=== PATIENT | female | born 1985 | race Two or more races ===

== ENCOUNTER 2025-08-16 17:13 | Emergency (ER) | payer MEDICAID, SELFPAY ==
[2025-08-16 18:19] VITALS: BP 147/92; PULSE 87; RESP 18; TEMP 36.8; O2SAT 97
--- NOTE | 2025-08-16 18:32 | EKG_ITS ---
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
--- NOTE | 2025-08-16 18:32 | XR_ITS ---
EXAMINATION: PA chest single view TECHNIQUE: Upright PA chest single view Date and time: August 16, 2025, 1834 hours INDICATIONS: Chest pain today. FINDINGS: Normal heart size No lobar pneumonia or pulmonary edema. Osseous structures intact IMPRESSION: No lobar pneumonia or pulmonary edema
--- NOTE | 2025-08-16 18:35 | EDNOTE_ITS ---
ED General RME/HPI General Chief complaint: Shortness of Breath/Dyspnea Stated complaint: SOB, left arm numb today Time Seen by Provider: 08/16/25 18:09 Arrival date/time: 08/16/25 17:13 Related Data Home Medications ?Medication ?Instructions ?Recorded ?Confirmed Nitrofurantoin Macrocrystals SR * 100 mg PO BID UTI #0 caps 01/05/14 (MACROBID *) Vitamin * 1 tab PO QDAY suppl ement 01/05/14 #0 tabs Previous Rx's ?Medication ?Instructions ?Recorded docusate sodium 100 mg capsule 100 mg PO BID #40 caps 02/25/22 (Colace) hydrocodone 5 mg-acetaminophen 325 1 tab PO Q6H PRN pa in (scale score 02/25/22 mg tablet 7-10) #20 tabs ibuprofen 600 mg tablet 600 mg PO Q8H PRN pain (scal e 02/25/22 score 4-6) #15 tabs ibuprofen 800 mg tablet 800 mg PO Q8H PRN pain 5 day s #15 08/16/25 tabs Allergies Allergy/AdvReac Type Severity Reaction Status Date / Time No Known Allergies Allergy Unknown Verified 08/16/25 17:19 ED Exam Narrative Physical exam: Physical Exam: GENERAL: Awake, answering questions appropriately, appears stated age HEENT: NC/AT. Moist mucosa. PERRLA/EOMI. CARDIO: Heart RRR, no obvious murmurs, no JVD. PULM: No coughing or visible SOB. Lungs CTA B/L. GI: Abdomen soft, NT/ND, +BS. SKIN/MSK/EXT: Tenderness on palpation of left axillary region and left scapular region. No wounds/discoloration/rashes/edema/amputations. +Pedal pulses present B/L. NEURO: Oriented x3, Moves extremities x4, no focal neurologic deficits noted Course Quality Measures none Orders Category Date Time Status Assistant At Surgery STAT Care 08/16/25 18:32 Active Continuous Pulse Oximetry ONCE Care 08/16/25 18:32 Active EKG (ED ONLY) *Do not use* NOW Care 08/16/25 18:32 Completed Insert IV STAT Care 08/16/25 18:32 Active EKG (ED Only) Stat Exams 08/16/25 18:32 Draft XR chest 1V portable Stat Exams 08/16/25 18:32 Completed CBC Stat Lab 08/16/25 18:51 Completed Comprehensive Metabolic Panel Stat Lab 08/16/25 18:51 Completed Magnesium Stat Lab 08/16/25 18:51 Completed Troponin I Stat Lab 08/16/25 18:51 Completed Aspirin Chew Med 08/16/25 18:32 Discontinued 324 mg PO X1 ONE Oxygen Delivery NOW RT 08/16/25 18:32 Active Vital Signs Vital signs: Vital Signs Temperature 98.3 F 08/16/25 18:19 Pulse Rate 87 08/16/25 18:19 Respiratory Rate 18 08/16/25 18:19 Blood Pressure 147/92 H 08/16/25 18:19 Pulse Oximetry (%) 97 08/16/25 18:19 Oxygen Delivery Method Room Air 08/16/25 18:19 Discharge Plan Plan Patient Disposition: HOME (Self Care) Discharge Disposition comment: Please take ibuprofen 800 mg every 8 hours as needed for left upper back pain Please follow-up with your primary care doctor within the next 5 days to monitor for pain relief If your pain resurfaces or gets worse, you develop shortness of breath and dizziness please come back to the emergency room immediately. Patient condition on transfer: Stable Prescriptions/Referrals Prescriptions/Med Rec: New ibuprofen 800 mg tablet 800 mg PO Q8H PRN (Reason: pain) 5 Days Qty: 15 0RF No Action Nitrofurantoin Macrocrystals SR * (MACROBID *) 100 MG capsule 100 mg PO BID Qty: 0 Vitamin * 1 EACH tablet 1 tab PO QDAY Qty: 0 hydrocodone-acetaminophen 5-325 mg tablet 1 tab PO Q6H MDD 4 PRN (Reason: pain (scale score 7-10)) Qty: 20 0RF docusate sodium [Colace] 100 mg capsule 100 mg PO BID Qty: 40 0RF ibuprofen 600 mg tablet 600 mg PO Q8H PRN (Reason: pain (scale score 4-6)) Qty: 15 0RF Referrals: Rui Russ MD [Primary Care Provider, Family Practice] - In 1 week Problem List Clinical Impression: Upper back pain on left side Patient/Caregiver Discharge Instructions Education Materials: Relieving Tension in Your Back Print Language: Swedish Stand Alone Forms: [employer]en Award Info., Patient Portal Info Letter MDM Narrative MDM hospital course (for use when minimal MDM required): HPI: 40-year-old female with past medical history of possible hypertension not on any antihypertensives, mild hyperlipidemia not on any statin, previously hypothyroid but not on any medication presenting to the ED on 08/16 with axillary chest pain and upper lower back pain. Patient states that she has been having this pain for about 1 week and she is concerned because last year when she went to her PCP with similar presentation they gave her some medication for her tongue and told her that she might be having a heart attack. Patient states that the pain feels like a stabbing sensation and is worse with palpation of the area. She denies any sick contacts, palpitations, shortness of breath but does state that she does get dizzy sometimes. She has not had any loss of consciousness. Patient does state that she has family history of heart disease with her older sister apparently had some type of heart at the age of 50 but otherwise she does not know her family history regarding stroke heart attacks. On examination please refer to the physical exam above, patient presented mildly hypertensive 147/92, heart rate of 87, respiratory of 18, afebrile satting 97 on room air. Laboratory findings largely unremarkable, CMP also largely unremarkable other than magnesium of 1.8, mild LFT elevation with AST 67, ALT 126 but total bilirubin 0.2 and alk phos of 109. Chest x-ray does not show any lobar pneumonia or pulmonary edema and EKG sinus rhythm without any concerning ST changes. Differentials at this time include: Musculoskeletal disorder, muscle sprain, costochondritis less likely to be acute coronary syndrome at this time #Atypical chest pain Patient's heart score 2?points Low Score (0-3 points) Risk of MACE of 0.9-1.7% Patient's pain is also reproducible with palpation meaning less likely cardiac etiology She does have some risk factors such as obesity, probably undiagnosed hypertension and hyperlipidemia and she does apparently smoke 1 or 2 cigarettes a day for the past 8 years and some family history Troponin and EKG unremarkable Plan: Will discharge with NSAID, ibuprofen 800 mg every 8 hours as needed for pain Close follow-up with PCP within the next 5 days for management of her hypertension hyperlipidemia. Patient seen and assessed with attending Dr. Nafisa Terrazas, DO PGY-2 Internal Medicine - GME Medication Administration(s) Medication Administration History Discontinued Medications Aspirin (Aspirin 81 Mg Chew) 324 mg PO X1 ONE Stop: 08/16/25 18:33 Last Admin: 08/16/25 19:19 Dose: Not Given Documented By: CHELA Non-Admin Reason: Cancelled by Provider
[2025-08-16 19:05] LABS: Basophils # (Auto) 0.1 Thou/mm3 (0.0-0.2); Basophils % (Auto) 1 % (0-2.5); Eosinophils # (Auto) 0.2 Thou/mm3 (0.0-0.5); Eosinophils % (Auto) 2 % (0-10); Hematocrit 38.1 % (36.0-46.0); Hemoglobin 12.9 g/dL (12.0-16.0); Immature Granulocytes Auto 0.01 Thou/mm3 (0.00-0.00); Lymphocytes # (Auto) 3.5 Thou/mm3 (1.0-4.8); Lymphocytes % (Auto) 39 % (10-50); Mean Corpuscular HGB Conc 33.9 g/dl (31.0-37.0); Mean Corpuscular Hemoglobin 31.8 pg (25.0-35.0); Mean Corpuscular Volume 94 fL (80-100); Monocytes # (Auto) 0.8 Thou/mm3 (0.0-0.8); Monocytes % (Auto) 9 % (0-12); Neutrophils # (Auto) 4.5 Thou/mm3 (1.8-7.7); Neutrophils % (Auto) 50 % (37-80); Nucleated Red Blood Cell # 0.00 Thou/mm3 (0.00-0.00); Nucleated Red Blood Cell % 0 /100 WBC (0); Platelet Count 381 Thou/mm3 (140-440); RDW Standard Deviation 42.6 fL (36.4-46.3); Red Blood Count 4.06 Miln/mm3 (4.00-5.20); White Blood Count 9.0 Thou/mm3 (3.6-11.0)
[2025-08-16 19:26] LABS: Alanine Aminotransferase 126 U/L (10-49); Albumin, Serum 4.5 gm/dL (3.5-5.0); Albumin/Globulin Ratio 1.3 (1.2-2.2); Alkaline Phosphatase 109 U/L (46-116); Anion Gap 9 (7-16); Aspartate Amino Transferase 67 U/L (0-34); BUN/Creatinine Ratio 15 Ratio (12-20); Bilirubin,Total 0.2 mg/dL (0.3-1.2); Blood Urea Nitrogen 9 mg/dL (9-23); Calcium 9.1 mg/dL (8.3-10.6); Calcium (Corrected) 9.1 mg/dL (8.5-10.1); Carbon Dioxide 25.7 mMol/L (20.0-31.0); Chloride 106 mMol/L (98-107); Creatinine (Component) 0.6 mg/dL (0.6-1.3); Globulin 3.4 gm/dL (2.3-3.5); Glucose 106 mg/dL (74-106); Magnesium 1.8 mg/dL (1.6-2.6); Osmolality,Calculated 279 (275-295); Potassium 3.8 mMol/L (3.4-5.1); Sodium 141 mMol/L (136-145); Total Protein 7.9 gm/dL (5.7-8.2); Troponin I < 0.002 ng/mL (0.0-0.045); eGFR > 60 See Note
== END 2025-08-16 20:32 | disposition home or self-care (01) ==
PROVIDERS: Emergency Provider Emergency Medicine; PCP Family Medicine
DX: M54.6 Pain in thoracic spine (principal); R07.9 Chest pain, unspecified; R42 Dizziness and giddiness; R06.02 Shortness of breath
CPT/HCPCS: 36415; 71045; 80053; 83735; 84484; 85025; 93005; 99283